=== PATIENT | male | born 1985 ===

== ENCOUNTER 2023-11-06 11:06 | Outpatient (CLI) | payer OTHER | END 2023-11-06 11:17 | disposition home or self-care (01) | LOC: SONOGRAMA 11:06 | PROVIDERS: ATTEND General Practice | DX: M25.511 Pain in right shoulder (principal); S49.91XA Unspecified injury of right shoulder and upper arm, initial encounter ==

== ENCOUNTER 2023-12-31 11:23 | Outpatient (CLI) | payer OTHER | END 2023-12-31 11:26 | disposition home or self-care (01) | LOC: SONOGRAMA 11:23 | PROVIDERS: ATTEND General Practice | DX: M75.111 Incomplete rotator cuff tear or rupture of right shoulder, not specified as traumatic (principal); M25.511 Pain in right shoulder ==